=== PATIENT | female | born 1985 | race Caucasian/White ===

== ENCOUNTER 2017-09-21 14:59 | Outpatient (CLI) | payer OTHER ==
--- NOTE | 2017-09-21 15:51 | Diagnostic Imaging Report ---
RUTHANN VILLAGOMEZ [facility] [address] [facility] [address] [address] Report Submission Date: Sep 21, 2017 3:22:58 PM TICKET ATTENDANT Patient Study Name: JORGE CHACKO Date: Sep 21, 2017 3:09:04 PM TICKET ATTENDANT Modality Type: DX Gender: F Description: CHEST : 81 Institution: [facility] Physician: RUTHANN VILLAGOMEZ Examination: PA and lateral chest. History: Evaluate lung landrum. Findings: PA lateral chest demonstrate a normal cardiac and mediastinal silhouette. No focal infiltrate. No blunting of the costophrenic margins. Osseous structures are appropriate for age. Impression: No acute pulmonary process. Electronically signed on Sep 21, 2017 3:22:58 PM TICKET ATTENDANT by: Irving ALVARADO
== END 2017-09-21 15:00 ==
LOC: RAD 14:59
PROVIDERS: ATTEND Physician Assistant
DX: R05 Cough (principal)
CPT/HCPCS: 71020